=== PATIENT | male | born 1995 | race Native Hawaiian/Other Pacific Islander ===

== ENCOUNTER 2016-09-01 07:19 | Day surgery (SDC) | payer OTHER ==
--- NOTE | 2016-08-22 14:34 | PCM.ANEPRE ---
Anesthesia Pre-Op Review Reason for Review: SURGEON'S REQUEST- ETOH SYND W/ LIVER INVOLVEMENT, OBESITY BMI 50 Additional Comments 20 year old male for tonsillectomy. History of obesity (BMI = 50), alcohol syndrome, " borderline" DM, hepatitis A, (C negative), STOP BANG = 4/8. Consider DOM observation for 1-2 hours prior to discharge. May need to admit if signs of DOM are significant. No further work-up needed. Ok to proceed pending anesthesiologist exam of airway on D.O.S. Chart Reviewed by: Dwaine Quinonez MD Aug 22, 2016 14:34
[~2016-09-01] VITALS: Ht 170.2 cm; Wt 140.0 kg
[2016-09-01] VITALS (7 sets, daily range): BP systolic 127–144; BP diastolic 69–97; PULSE 82–107; RESP 12–18; O2SAT 95–100
[~2016-09-01 07:19] MED LIST: ACYC400T2 PO; CHOL100045 PO; Dexamethasone 10 mg/mL Inj IV ONE; Dexamethasone Inj 20 MG in 0.9% Sodium Chloride 50 ML IV ONE; Lactated Ringer's 1,000 ML IV ONE; Lactated Ringer's 1,000 ML IV SCH; MULT-1018 PO
[2016-09-01] MEDS ORDERED: MeTOProlol 1 mg/mL 5 mL Inj ONE (07:20)
[2016-09-01] MEDS ORDERED: Succinylcholine Chloride 20 mg/mL 5 mL Inj ONE (07:20)
[2016-09-01] MEDS ORDERED: fentaNYL-PF 50 mCg/mL 2 mL Inj ONE (07:20)
[2016-09-01] MEDS ORDERED: Ondansetron 2 mg/mL 2 mL Inj ONE (07:20)
[2016-09-01] MEDS ORDERED: MetoCLOpramide 5 mg/mL 2 mL Inj ONE (07:20)
[2016-09-01] MEDS ORDERED: Propofol 10,000 mCg/mL 20 mL Inj ONE (07:20)
[2016-09-01] MEDS ORDERED: SERT50TA9 PO (07:51)
[2016-09-01] MEDS ORDERED: TYLENOL PO (07:51)
[2016-09-01 09:29] LABS: INR 0.96 ratio
[2016-09-01] MEDS ORDERED: Lactated Ringer's 500 ML IV PRN (09:58)
[2016-09-01] MEDS ORDERED: Lactated Ringer's 1,000 ML IV SCH (09:58)
[2016-09-01] MEDS ORDERED: Ondansetron 2 mg/mL 2 mL Inj IVPUSH PRN (10:00)
[2016-09-01] MEDS ORDERED: MetoCLOpramide 5 mg/mL 2 mL Inj IVPUSH PRN (10:00)
[2016-09-01] MEDS ORDERED: fentaNYL-PF 50 mCg/mL 2 mL Inj IVPUSH PRN (10:00)
[2016-09-01] MEDS ORDERED: Atropine 0.4 mg/mL Inj IVPUSH PRN (10:00)
[2016-09-01] MEDS ORDERED: EPHEDrine Sulfate 50 mg/mL Inj IVPUSH PRN (10:00)
[2016-09-01] MEDS ORDERED: hydrALAZINE 20 mg/mL Inj IVPUSH PRN (10:00)
[2016-09-01] MEDS ORDERED: Phenylephrine 10,000 mCg/mL Inj IVPUSH PRN (10:00)
[2016-09-01] MEDS ORDERED: Labetalol 5 mg/mL 4 mL Inj IV PRN (10:00)
[2016-09-01] MEDS ORDERED: HYDROmorphone 1 mg/mL Inj IVPUSH PRN (10:00)
[2016-09-01] MEDS ORDERED: Bismuth Subgallate Powder 25 Gm TOPICAL ONE (10:11)
[2016-09-01] MEDS ORDERED: Lidocaine 1%-Epi 1:100,000 20 mL Inj INJ ONE (10:11)
[2016-09-01] MEDS ORDERED: Bupivacaine-MPF 0.5% W/EPI 30 mL Inj INJ ONE (10:11)
--- NOTE | 2016-09-01 10:27 | PCM.HPANE ---
Patient Data Surgeon Admitting Provider: Attending Provider:Jerzy Rae MD Primary Care Physician:Other,Physician Other Provider:Rox Clements Anesthesia Reason for Visit Hypertrophy Of Tonsils Ht/WT & BMI Height (Feet): 5 Height (Inches): 7 Weight (Kilograms): 145.603 Body Mass Index 50.00 Allergies Coded Allergies: Naylor (Verified Allergy, Severe, hives, 08/22/16) Bleach (Sodium Hypochlorite) (Verified Adverse Reaction, Severe, skin irritation, 08/22/16) kiwi (Verified Adverse Reaction, Severe, sore throat, 08/22/16) lactose (Verified Adverse Reaction, Severe, diarrhea, 08/22/16) Past Anesthesia History Anesthesia History: Denies:: Fam Anesthesia Reaction, Fam Malignant Hypertherm Diabetes History Hx Diabetes?: No (BORDERLINE) MRSA MRSA: No Medications Reported Medications [Tylenol] No Conflict [id number] Mg PO PRN PRN For Pain 09/01/16 Sertraline HCl (Sertraline)50 Mg [id number] Mg PO DAILY 30 Days Ref 0 09/01/16 Acyclovir 400 Mg [id number] Mg PO TID Ref 0 08/22/16 Discontinued Reported Medications Cholecalciferol (Vitamin D3) (Vitamin D)1,000 Unit Capsule5,000 Unit PO DAILY # 1 BOTTLE Ref 0 08/22/16 Multivitamin (Multi Vitamin Daily)1 Each Tablet1 Each PO DAILY 30 Days Ref 0 08/22/16 History History of ENT Problems?: Yes HEENT History: Positive for:: Hearing Problem Sinus Problem (SEASONAL ALLERGIES TONSILLAR HYPERTROPHY=CURRENT PROBLEM) Hx of Heart Problems?: Yes Cardiovascular History: Denies:: Heart Murmur Hypertension Irregular Heartbeat (C/OF INTERMITTANT PALPITATIONS) Hx of Respiratory Problem?: Yes Respiratory History: Positive for:: Cough (FAIRLY RECENT URI) Denies:: Use of C-PAP Machine Hx Neurologic Problems?: No Hx of GI Problems?: Yes Gastrointestinal History: Positive for:: Hepatitis (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 Pressure Ulcers Hx Musculoskeletal Problems?: Yes Musculoskeletal History: Positive for:: Musculoskeletal Trauma (C/OF BILAT ANKLE INSTABILITY & PAIN) Denies:: Back Injury (C/OF BACK PAIN) Hx of Psycho/Social Problems?: Yes Psycho Social History: Positive for:: Bipolar Disorder Hx Depression Hx Surgeries?: No Hx Any Other Health Problems?: No Other History: Denies:: Cancer Endocrine Disease (C/OF NIGHT SWEATS) Hospitalization Thyroid Disease History Blood Transfusions: Positive for:: Accept Blood Products? Denies:: Blood Transfusions Hx Diabetes: No (BORDERLINE) Hx Alcohol Use: NoHx Substance Use: NoHave You Smoked inLast 12 mo: Yes Approx How Many Cigarettes/day: 4 C/DAY X 5YRS Stop/Bang S-Snoring: Do You Snore Loudly: No T-Tired: feel tired, fatigued: Yes O-Obsered: Observed not breath: No P-Blood Pressure: treated: No B- Body Mass Index > 35 kg/m2: Yes A- Age over 50: No N- Neck Large Circumference: Yes G- Gender Male: Yes DOM Total Score: 4 Risk Assessment Category Category 1A: Patient has history of documented sleep apnea, and HAS NOT received any narcotic, sedative or anesthesia administration during this stay. Category 1B: Patient has history of documented sleep apnea, and HAS received any narcotic , sedative or anesthesia administration during this stay Category 2: Patient has SUSPECTED Obstructive Sleep Apnea, and HAS received any narcotic , sedative or anesthesia administration during this stay. Category 3: Patient has SUSPECTED Obstructive Sleep Apnea and HAS NOT received narcotic, sedative or anesthesia administration during this stay. Category 4: Outpatient in Procedural Areas with known sleep apnea or who screen positive for High Risk via the STOP/BANG questionnaire. Exam Exam General Appearance: Alert, Oriented X3, Cooperative, No Acute Distress HEENT/AIRWAY: MP 2, Neck Movement (FROM, large neck circumference), Mouth Opening (3 FBMO) Lungs: Clear to Auscultation, Diminished Heart: Exam Unremarkable, Regular Rate/Rhythm, No Murmurs/Rubs/Gallops Meds/Labs/Diagnostics Admission Meds Current Medications Lactated Ringer's (Lr) 1,000 ml @ 120 mls/hr [id number] ONCE IV Last administered on 09/01/16t 07:23; Start 09/01/16 at 05:00; Stop 09/01/16 at 13:19 Plan Impression Patient chart reviewed, patient interviewed and anesthestic plan with risks, benefits, and alternatives discussed, and informed consent obtained. NPO Status: > 8hrs ASA Physical Status: ASA3 Severe Disease (BMI 48) Anesthetic Support Modalities: [place] Scope Anesthetic Plan: GA Bene/Risks/Altern/Consents: Yes HP Complete Prior to Induction: Yes Riley Lisa MD Sep 01, 2016 08:05
[2016-09-01] MEDS ORDERED: Lactated Ringer's 1,000 ML IV ONE (11:18)
[2016-09-01] MEDS ORDERED: HYDROcodone-APAP 7.5-325 mg/15 mL 15 mL Solution ONE (11:40)
--- NOTE | 2016-09-01 14:57 | PCM.ANEP2 ---
Post Anesthesia Evaluation ASA/CMS Post Anesthesia VS in Patient's Normal Range?: Yes Resp Stable; Airway Patent?: Yes CV Function & Hydration Stable: Yes Mental Status Recovered?: Yes Pain control Satisfactory?: Yes N/V Control Satisfactory?: Yes Riley Lisa MD Sep 01, 2016 14:57
--- NOTE | 2016-09-01 14:57 | PCM.ANEP1 ---
Post Anesthesia Phase 1 PACU Phase 1 Assessment Vital Signs Vital Signs Date Time Temp Pulse Resp B/P Pulse Ox O2 Delivery O2 Flow Rate FiO2 09/01/16 13:10 106 18 134/92 98 Room Air 09/01/16 11:30 107 16 135/77 95 Room Air 09/01/16 11:20 102 16 140/80 98 Room Air 09/01/16 11:10 103 16 144/97 99 Room Air 09/01/16 11:00 106 14 127/74 98 Room Air 09/01/16 10:50 37.8 103 12 128/93 100 Simple Mask 10 09/01/16 08:04 36.3 82 18 129/69 98 Room Air Anesthetic Administered: GA Level of Alertness: Awake, talking JAMIL's with Equal Strength: Yes Pain: No Nausea or Vomiting: No Oxygen Delivery: Simple Mask Lungs: Clear to Auscultation, Diminished Dermatome Level: Full Sensation Riley Lisa MD Sep 01, 2016 14:57
--- NOTE | 2016-09-01 23:24 | OP ---
[address] [address] OPERATIVE REPORT PATIENT: COLBY COTO : 1995 MR#: [id number] ADMIT: 09/01/2016 JOB ID: [id number] DATE OF SURGERY: 09/01/2016 SURGEON: Jerzy Rae MD PREOPERATIVE DIAGNOSIS(ES): POSTOPERATIVE DIAGNOSIS(ES): INDICATIONS FOR PROCEDURE: Chronic tonsillitis. OPERATION PERFORMED: Tonsillectomy. FINDINGS: 3+ cryptic tonsils. Small adenoids. PROCEDURE IN DETAIL: With the patient supine on the operating table, general orotracheal anesthesia was used. The tongue was retracted. Tonsillectomy performed with cautery technique right and left with the above findings. Hemostasis with Bovie cautery, bismuth paste and 0 chromic suturing, gathering the tonsil bed to promote hemostasis. Procedure terminated. Patient turned over to Anesthesia for emergence from anesthetics without known complications.
== END 2016-09-01 23:59 | disposition home or self-care (01) ==
LOC: SAS 07:19
PROVIDERS: ATTEND Otolaryngology Facial Plastic Surgery
DX: J35.1 Hypertrophy of tonsils (principal); J35.01 Chronic tonsillitis; F17.210 Nicotine dependence, cigarettes, uncomplicated; Q86.0 Fetal alcohol syndrome (dysmorphic); R16.0 Hepatomegaly, not elsewhere classified; E66.01 Morbid (severe) obesity due to excess calories; Z68.42 Body mass index [BMI] 45.0-49.9, adult; E11.9 Type 2 diabetes mellitus without complications
CPT/HCPCS: 36415; 42826; 85610; 85730; J0330; J1100; J2405; J2765; J7120